=== PATIENT | female | born 1990 | race African-American/Black ===

== ENCOUNTER 2019-04-25 17:17 | Inpatient (IN) | payer MEDICAID ==
[~2019-04-25] VITALS: Ht 162.6 cm; Wt 60.8 kg
[2019-04-26] MEDS ORDERED: METHYLPREDNISOLONE SOD SUCC 125 MG/2 ML VIAL IV ONE (01:15)
[2019-04-26] MEDS ORDERED: ALBUTEROL (0.083%) 2.5MG/3ML NEB HHN ONE (01:15)
[2019-04-26] MEDS: IPRATROPIUM/ALBUTEROL 0.5-3(2.5)MG/3ML NEB HHN SCH ×4 (02:19→20:23)
[2019-04-26] MEDS ORDERED: ALBUTEROL (0.5%) 2.5MG/0.5ML NEB HHN ONE ×2 (02:30→03:45)
[2019-04-26] MEDS ORDERED: IPRATROPIUM BROMIDE (0.02%) 0.5MG/2.5ML NEB HHN ONE ×2 (02:30→03:45)
[2019-04-26] MEDS ORDERED: DOCUSATE SODIUM 100MG CAPSULE PO PRN (09:30)
[2019-04-26] MEDS ORDERED: ZOLPIDEM TARTRATE 5MG TABLET PO PRN (09:30)
[2019-04-26] MEDS ORDERED: ACETAMINOPHEN 325MG TABLET PO PRN (09:30)
[2019-04-26] MEDS ORDERED: MAGNESIUM/ALUMINUM HYDROXIDE/SIMETHICONE 30ML UDC PO PRN (09:30)
[2019-04-26] MEDS ORDERED: LORAZEPAM 0.5MG TABLET PO PRN (09:30)
[2019-04-26] MEDS ORDERED: GUAIFENESIN 200MG/10ML SUGAR FREE UDC PO PRN (09:30)
[2019-04-26] MEDS ORDERED: CLONIDINE 0.1MG TABLET PO PRN (09:30)
[2019-04-26] MEDS ORDERED: ONDANSETRON HCL 4MG/2ML INJ IV PRN (09:30)
[2019-04-26] MEDS ORDERED: IPRATROPIUM/ALBUTEROL 0.5-3(2.5)MG/3ML NEB NEB PRN (09:30)
[2019-04-26] MEDS ORDERED: NITROGLYCERIN 0.4MG TABLET SL SL PRN (09:30)
[2019-04-26] MEDS ORDERED: DIPHENHYDRAMINE 50MG/ML VIAL IV PRN (09:30)
[2019-04-26 09:37] VITALS: BP 113/71
[2019-04-26] MEDS ORDERED: ALBU4TAB6 MT (11:06)
[2019-04-26] MEDS ORDERED: FERR-71 MT (11:06)
[2019-04-26 13:14] LABS: *AMPHETAMINES SCREEN URINE NEGATIVE (NEGATIVE); *BARBITURATES SCREEN URINE NEGATIVE (NEGATIVE)
[2019-04-26 13:15] LABS: *BENZODIAZEPINES SCREEN URINE NEGATIVE (NEGATIVE); *COCAINE SCREEN URINE NEGATIVE (NEGATIVE); METHADONE URINE SCREEN NEGATIVE (NEGATIVE); OPIATES URINE SCREEN NEGATIVE (NEGATIVE); PHENCYCLIDINE URINE SCREEN NEGATIVE (NEGATIVE)
[2019-04-26 13:28] LABS: CANNABINOID URINE SCREEN PRESUMTIVE POSITIVE (NEGATIVE)
[2019-04-26 13:41] LABS: CHLORIDE 111 mEq/L (98-107)
[2019-04-26] MEDS: METHYLPREDNISOLONE SOD SUCC 125 MG/2 ML VIAL IV SCH ×2 (14:13→22:44)
[2019-04-26] MEDS ORDERED: KETOROLAC 15MG/ML VIAL IV PRN (15:00)
[2019-04-26 20:00] VITALS: BP 118/71
[2019-04-26] MEDS: FAMOTIDINE 20MG TABLET PO SCH (22:43)
[2019-04-26] MEDS: GUAIFENESIN 600MG ER TABLET PO SCH (23:00)
[2019-04-27] VITALS: BP 96/58
[2019-04-27] MEDS: IPRATROPIUM/ALBUTEROL 0.5-3(2.5)MG/3ML NEB HHN SCH ×2 (05:51→08:04)
[2019-04-27] MEDS: METHYLPREDNISOLONE SOD SUCC 125 MG/2 ML VIAL IV SCH (07:46)
[2019-04-27] MEDS: FAMOTIDINE 20MG TABLET PO SCH (08:56)
[2019-04-27] MEDS: GUAIFENESIN 600MG ER TABLET PO SCH (08:56)
[2019-04-27 09:49] VITALS: BP 112/60
[2019-04-27 10:09] VITALS: BP 112/60
== END 2019-04-27 11:25 | disposition home or self-care (01) | DRG 141 ==
LOC: ER 17:17 → 6EST 04-26 04:17 → ENRESERV 04-26 07:02 → 6EST 04-26 09:27
PROVIDERS: ADMIT Internal Medicine; ATTEND Internal Medicine
DX: J45.901 Unspecified asthma with (acute) exacerbation (principal); F12.10 Cannabis abuse, uncomplicated; F17.200 Nicotine dependence, unspecified, uncomplicated; Z98.891 History of uterine scar from previous surgery; Z88.7 Allergy status to serum and vaccine; Z88.8 Allergy status to other drugs, medicaments and biological substances; Z79.51 Long term (current) use of inhaled steroids; Z79.899 Other long term (current) drug therapy; Z71.51 Drug abuse counseling and surveillance of drug abuser
CPT/HCPCS: 36415; 71045; 80048; 80305; 83036; 93005; 94640; 96374; 99285; J2930; J7611; J7620

== ENCOUNTER 2019-04-27 18:24 | Emergency (ER) | payer MEDICAID ==
[~2019-04-27] VITALS: Ht 162.6 cm; Wt 60.0 kg
[~2019-04-27 18:24] MED LIST: ALBU4TAB6 MT; FERR-71 MT
[2019-04-27] MEDS ORDERED: ACETAMINOPHEN 325MG TABLET PO STA (19:20)
[2019-04-27 19:41] LABS: BASOPHILS % 0.2 % (0.0-2.0); EOSINOPHILS % 0.1 % (0.0-5.0); HEMATOCRIT. 36.7 % (36.0-48.0); HEMOGLOBIN. 11.7 g/dL (12.0-16.0); LYMPHOCYTES % 23.3 % (20.0-50.0); MEAN CORPUSCULAR HEMOGLOBIN 22.2 pg (28.0-32.0); MEAN CORPUSCULAR VOLUME 69.8 fL (81.0-99.0); MONOCYTES % 10.3 % (2.0-8.0); NEUTROPHILS % 66.1 % (40.0-76.0); PLATELET 254 x1000/uL (130-400); RED BLOOD CELL COUNT 5.26 mill/uL (4.2-5.4); RED CELL DISTRIBUTION WIDTH 18.2 % (11.6-14.6)
[2019-04-27 19:46] LABS: CHLORIDE 107 mEq/L (98-107)
[2019-04-27 20:46] LABS: PLATELET ESTIMATE NORMAL
[2019-04-27 20:54] LABS: CLARITY URINE CLEAR (CLEAR); COLOR URINE YELLOW (YELLOW); KETONES URINE TRACE (NEGATIVE); LEUKOCYTE ESTERASE URINE NEGATIVE (NEGATIVE); NITRITE URINE NEGATIVE (NEGATIVE); OCCULT BLOOD URINE NEGATIVE (NEGATIVE); PROTEIN URINE NEGATIVE (NEGATIVE); SPECIFIC GRAVITY URINE 1.019 (1.005-1.030); UROBILINOGEN URINE 0.2 E.U./dL (0.2-1.0)
[2019-04-27] MEDS ORDERED: ONDANSETRON 4MG ODT PO ONE (22:00)
[2019-04-27] MEDS ORDERED: IBUPROFEN 600MG TABLET PO ONE (22:00)
[2019-04-27 23:00] VITALS: BP 106/54
== END 2019-04-27 23:03 | disposition home or self-care (01) ==
LOC: ER 18:43
DX: N83.201 Unspecified ovarian cyst, right side (principal); R05 Cough; D64.9 Anemia, unspecified; J45.909 Unspecified asthma, uncomplicated; F12.10 Cannabis abuse, uncomplicated; Z98.890 Other specified postprocedural states; Z91.018 Allergy to other foods; Z88.7 Allergy status to serum and vaccine
CPT/HCPCS: 36415; 76830; 76856; 80053; 81003; 81025; 83690; 85025; 93005; 99284; Q0162